=== PATIENT | female | born 1950 | race Two or more races ===

== ENCOUNTER 2016-10-02 11:13 | Observation (INO) | payer OTHER ==
--- NOTE | ~2016-10-02 | CR72 ---
[facility] A Service of [facility] & [facility] RADIOLOGY TEXT RESULTS PATIENT: PRINCESS PETTIT LOCATION: [facility] : 54 UNIT #: [id number] AGE: [address]: Kelly Orantes MD SEX: F ORDER DR: [id number] [facility] [address] [place], [place] [address] [id number] E MR#: [id number] Acc #: [id number] NAME: PRINCESS PETTIT : 1950 SEX: F STUDY DATE/TIME: 10/02/2016 10:16 UNIT: [facility] ROOM: STUDY DESCRIPTION: CR Chest Single View Portable Attending Physician: Kelly Orantes M.D. Ordering Physician: Kelly Orantes M.D. Primary Care Physician: Earl Whitaker M.D. MEDICAL IMAGING REPORT This report is preliminary unless electronic signature is present EXAM Portable chest HISTORY Chest pain, hypertension, nausea for the past 2 days. TECHNIQUE A single AP view chest was obtained and compared with 06/29/2012 FINDINGS A single AP portable view of the chest shows both lungs to be clear. The heart is normal in size. The mediastinal contour is normal. No significant bone abnormalities are seen. IMPRESSION Normal portable chest. Dictated by... Shreyas Mello M.D. THIS IS AN ELECTRONICALLY VERIFIED REPORT Shreyas Mello M.D. at 10/02/2016 3:27 PM LURDES/rick TD: 10/02/2016 13:28 JOB #: [id number] MEDICAL IMAGING REPORT COPY
--- NOTE | ~2016-10-02 | TH ---
Unit #: [id number] #: [id number] Patient: PRINCESS PETTIT [id number] [address] [address] [id number] I MR#: [id number] NAME: PRINCESS PETTIT : 1950 SEX: F STUDY DATE/TIME: 10/05/2016 UNIT: C5B ROOM: 558 STUDY DESCRIPTION: Attending Physician: Derian Moore M.D. Primary Care Physician: Earl Whitaker M.D. CARDIOLOGY REPORT EXAM Lexiscan Cardiolite stress test, nuclear portion. PROCEDURE Using technetium 99m labeled Cardiolite, rest and stress SPECT images were obtained. Multiple SPECT images were obtained in various views including horizontal and vertical long axis and short axis views of the left ventricle. Images were obtained by gated SPECT method. The patient was administered 10.26 mCi of Cardiolite at rest. The patient was administered 35.1 mCi of Cardiolite after Lexiscan infusion was completed. On the stress images, there is mild decreased isotope activity in the anteroapical wall. The rest images show normal perfusion. Comparing rest and stress images, a small area of stress-induced ischemia involving the anteroapical wall of the left ventricle cannot be ruled out. The left ventricular ejection fraction is calculated to be 78%. The left ventricular size is small. There is no focal wall motion abnormality seen. CONCLUSION 1. A small area of stress-induced ischemia involving the anteroapical wall of the left ventricle cannot be ruled out. 2. The left ventricular ejection fraction is calculated to be 78%. 3. There is no focal wall motion abnormality seen. 4. The left ventricular size is small. 5. Technically extremely limited study due to patient's body habitus. Clinical correlation is requested. Dictated by... Nithya Chakraborty TD: 10/05/2016 12:44 JOB #: [id number] Unit #: [id number] #: [id number] Patient: PRINCESS PETTIT CARDIOLOGY REPORT X Roxann Brandt MD <ELECTRONICALLY SIGNED> 02/20/17 1429 CARDIOLOGY REPORT
--- NOTE | ~2016-10-02 | EKG ---
PATIENT: PRINCESS PETTIT UNIT #: [id number] Ventricular Rate: 95 BPM Atrial Rate: 95 BPM P-R Interval: 202 ms QRS Duration: 78 ms Q-T Interval: 354 ms QTC Calculation(Bezet): 444 ms P [place]: 29 degrees Calculated R [place]: 5 degrees Calculated T [place]: 22 degrees Diagnosis Line: Normal sinus rhythm Diagnosis Line: Normal ECG Diagnosis Line: When compared with ECG of 01-OCT-2014 23:44, Diagnosis Line: No significant change was found Diagnosis Line: Confirmed by FABI WATTERS MD ([id number]) on 10/02/2016 Diagnosis Line: 4:47:02 PM INTERPRETING MD: DUONG WESLEY
--- NOTE | ~2016-10-02 | EKG ---
PATIENT: PRINCESS PETTIT UNIT #: [id number] Ventricular Rate: 83 BPM Atrial Rate: 83 BPM P-R Interval: 212 ms QRS Duration: 88 ms Q-T Interval: 386 ms QTC Calculation(Bezet): 453 ms P [place]: 33 degrees Calculated R [place]: 0 degrees Calculated T [place]: 2 degrees Diagnosis Line: Sinus rhythm with 1st degree A-V block Diagnosis Line: Otherwise normal ECG Diagnosis Line: When compared with ECG of 02-OCT-2016 09:49, Diagnosis Line: No significant change was found Diagnosis Line: Confirmed by MORIAH BARGER MD ([id number]) on Diagnosis Line: 10/06/2016 3:59:55 PM INTERPRETING MD: DENITA WESLEY
--- NOTE | ~2016-10-02 | CT16 ---
[facility] A Service of [facility] RADIOLOGY TEXT RESULTS PATIENT: PRINCESS PETTIT LOCATION: [facility] 558-01 : 54 UNIT #: [id number] AGE: [address]: Derian Moore MD SEX: F ORDER DR: [id number] [facility] [address] [facility] [place] [facility] [place], [place] [address] [id number] I MR#: [id number] Acc #: [id number] NAME: PRINCESS PETTIT : 1950 SEX: F STUDY DATE/TIME: 10/02/2016 14:30 UNIT: CEDOF ROOM: 27933 STUDY DESCRIPTION: CT Angio Chest for PE Attending Physician: Derian Moore M.D. Ordering Physician: Kelly Orantes M.D. Primary Care Physician: Earl Whitaker M.D. MEDICAL IMAGING REPORT This report is preliminary unless electronic signature is present EXAM CT angiogram chest, PE protocol. DATE OF EXAM 10/02/2016 HISTORY Elevated D-dimer, elevated white blood cell count, chest pain onset of symptoms this morning. TECHNIQUE Axial images performed through the chest following IV contrast. 3-D coronal and sagittal reconstructed images reviewed at a workstation. NOTE: This CT exam was performed with one or more of the following radiation dose reduction techniques: automatic exposure control, adjustment of mA and/or kV according to patient size, and iterative reconstruction. FINDINGS Pulmonary parenchyma unremarkable except for a small amount of lingular atelectasis. No effusions. Trachea and bronchi unremarkable. Normal enhancement of the pulmonary arteries. No definitive emboli. The aorta is free of dissection or aneurysm. Heart size within normal limits. No significant mediastinal or hilar lymphadenopathy. Visualized upper abdomen unremarkable. Mild diffuse degenerative changes of the thoracic spine. The thoracic inlet, extrathoracic soft tissues unremarkable. IMPRESSION No acute intrathoracic abnormality identified. In particular, no evidence of pulmonary embolus. [facility] A Service of [facility] RADIOLOGY TEXT RESULTS PATIENT: PRINCESS PETTIT LOCATION: [facility] 558 : 54 UNIT #: [id number] AGE: [address]: Derian Moore MD SEX: F ORDER DR: Dictated by... Christine Cabrera M.D. THIS IS AN ELECTRONICALLY VERIFIED REPORT Christine Cabrera M.D. at 10/05/2016 7:40 AM Peggy TD: 10/02/2016 20:48 JOB #: [id number] MEDICAL IMAGING REPORT COPY
--- NOTE | ~2016-10-02 | ST ---
Unit #: [id number] #: [id number] Patient: PRINCESS PETTIT [id number] [address] [address] [id number] I MR#: [id number] NAME: PRINCESS PETTIT : 1950 SEX: F STUDY DATE/TIME: 10/03/2016 UNIT: C5B ROOM: 558 STUDY DESCRIPTION: Attending Physician: Derian Moore M.D. Primary Care Physician: Earl Whitaker M.D. CARDIOLOGY REPORT EXAM EKG portion of Lexiscan Cardiolite stress test. REASON FOR EXAM Chest pain. DISCUSSION Baseline EKG reveals sinus rhythm with a ventricular rate of 88 beats per minute. Mild T wave inversion noted in the inferior leads. Poor R wave progression in the anterior leads. A total of 0.4 mg of Lexiscan was injected per protocol, followed by Cardiolite. There were no complaints of chest pain. There were no sustained arrhythmias noted. There were no ST or T wave changes from baseline to suggest ischemia. The maximum heart rate was 111 beats per minute with a maximum blood pressure of 144/84 mmHg. The test was stopped due to protocol completion. IMPRESSION 1. Negative EKG portion of Lexiscan Cardiolite stress test. 2. There were no complaints of chest pain. 3. There were no sustained arrhythmias noted. 4. There were no ST or T wave changes to suggest ischemia from baseline. 5. Please correlate with Cardiolite images. 1. Dictated by... Danielle García APRN for Nithya Dominguez/michaela TD: 10/04/2016 20:26 JOB #: [id number] CARDIOLOGY REPORT X CARDIOLOGY REPORT
--- NOTE | ~2016-10-02 | HP ---
Unit #: [id number] #: [id number] Patient: PRINCESS PETTIT [id number] [address] [place], [place] [address] [id number] E MR#: [id number] NAME: PRINCESS PETTIT ROOM: Age: 66 Sex: F Admission Date: 10/02/2016 : 1950 Attending Physician: Kelly Orantes M.D. Primary Care Physician: Earl Whitaker M.D. HISTORY AND PHYSICAL HISTORY OF PRESENT ILLNESS This is a pleasant 66-year-old [place] female who is non-Romanian speaking. All information was obtained from the licensed pesticide applicator phone. The patient has a past medical history of hypertension, hyperlipidemia, diabetes mellitus type 2, anxiety, depression. She states she was at home today and noticed her blood pressure was elevated. She also complained of substernal chest pain. She describes it as sharp in nature with no radiation into the jaw, arm, or into the shoulder. She had no associated diaphoresis, shortness of air, nausea or vomiting. The patient did take her blood pressure medications at home but came into the emergency room for evaluation. On presentation, her initial EKG shows sinus rhythm at 95 beats per minute; no acute ischemic change; QTC interval 444 msec. POC troponins have been negative x2. The patient does have risk factors for coronary artery disease which include obesity, hypertension, hyperlipidemia, and diabetes mellitus. At present, she reports she is chest pain-free and she is mostly concerned with eating. She states she has never had this before and it was concerning to her. She currently is lying in bed. She is comfortable in no acute distress. PAST MEDICAL HISTORY 1. Hypertension. 2. Hyperlipidemia. 3. Diabetes mellitus. 4. Anxiety. 5. Depression. 6. Obesity. PAST SURGICAL HISTORY Cholecystectomy. HOME MEDICATIONS 1. Pravachol 20 mg p.o. daily. 2. Abilify 5 mg p.o. b.i.d. 3. Metoprolol tartrate 25 mg p.o. b.i.d. 4. Januvia 100 mg p.o. daily. 5. Fluoxetine 40 mg p.o. daily. 6. Timoptic 5 mL both eyes daily. 7. Lisinopril/hydrochlorothiazide 20/12.5 one tab p.o. b.i.d. 8. Clonidine 0.1 mg p.o. q.6 h. p.r.n. for systolic blood pressure greater than 160. Unit #: [id number] #: [id number] Patient: PRINCESS PETTIT 9. Pioglitazone 30 mg p.o. daily. 10. Metformin 500 mg p.o. b.i.d. SOCIAL HISTORY The patient states she lives alone. She has been in the [place] for approximately 14 years. Again, she does not speak Romanian. Her son and daughters are close by and they help her. The patient reports she does not do much activity on a regular basis. She is a lifelong nonsmoker. Denies illicit drug use or alcohol. FAMILY HISTORY Positive for hypertension and stroke in her mother. REVIEW OF SYSTEMS A 12-point review of systems was completed and is positive for what was stated in the HPI, chest pain and some back pain. Otherwise negative. PHYSICAL EXAMINATION VITAL SIGNS: Temperature 98.2, respiratory rate 18, pulse 98 to 114, blood pressure 121/85. Her BMI is 38. GENERAL: This is a pleasant, non-Romanian speaking 66[facility]. Information was gathered via licensed pesticide applicator phone. She is resting in the bed in the emergency room in room T7. She is in no acute distress. HEENT: Pupils are equal and round. Mucous membranes are dry. LUNGS: Clear to auscultation. No adventitious breath sounds. No rales, no rhonchi, no wheezes. Slightly diminished in the bases. HEART: S1, S2. Regular rate and rhythm. No murmur. ABDOMEN: Soft, nontender, nondistended, obese pannus. Bowel sounds are present. EXTREMITIES: Pulses are palpable. No clubbing, cyanosis, or edema. DIAGNOSTIC STUDIES LABORATORY: POC troponins have been negative x2. Sodium 136, potassium 4.8, chloride 100, CO2 is 28, BUN 16, creatinine 1.0, blood glucose is 240. Hemoglobin 13.7, hematocrit 40.6, WBC 10.9, platelet count 313. BNP is 21. IMAGING: Chest x-ray shows no active disease. CARDIOVASCULAR: EKG shows normal sinus rhythm rate of 95 beats per minute. QTC interval 444 msec. No acute ischemic changes noted. IMPRESSION 1. Atypical chest pain, rule out acute coronary syndrome. 2. Hypertension. 3. Hyperlipidemia. 4. Diabetes mellitus. 5. Obesity with a BMI of 38. PLAN 1. Patient will be admitted for overnight observation. 2. She will be started on a diet today. 3. Currently chest pain-free. 4. EKG shows no acute abnormality, however, will trend cardiac enzymes. If abnormal, those are to be called. 5. The patient will be scheduled for Lexiscan Cardiolite in the a.m. 6. N.P.O. after midnight and no caffeine. 7. Will get fasting lipid panel, hemoglobin A1c, CBC, BMP, magnesium and Unit #: [id number] #: [id number] Patient: PRINCESS PETTIT TSH level in the morning. 8. Start her on 81 mg of daily aspirin. 9. At present, her blood pressure is controlled. Will resume her home medications as directed. 10. Further recommendations to follow pending Dr. Moore's assessment. Dictated by Holly Hewitt A.P.R.N. for Nithya Dominguez/cs TD: 10/02/2016 17:13 JOB #: [id number] HISTORY AND PHYSICAL X Holly Hewitt APRN X HISTORY AND PHYSICAL
[2016-10-02 11:06] LABS: BASOPHIL# 0.1 X10e3 (0-0.3); BASOPHIL% 0.5 % (0-2.5); EOSINOPHIL# 0.2 X10e3 (0-0.7); EOSINOPHIL% 1.6 % (0.0-7.0); HEMATOCRIT 40.6 % (35.0-45.0); HEMOGLOBIN 13.7 gm/dL (12.0-16.0); LYMPHOCYTE# 2.5 X10e3 (1.0-3.5); LYMPHOCYTE% 23.2 % (17.0-45.0); MEAN CELL VOLUME 87.1 FL (83-96); MEAN CORPUSCULAR HEMOGLOBIN 29.3 PG (28-34); MEAN CORPUSCULAR HGB CONC 33.7 g/dL (30-36); MEAN PLATELET VOLUME 8.9 FL (6.5-11.5); MONOCYTE# 0.7 X10e3 (0-1.0); NEUTROPHIL# 7.5 X10e3 (1.5-7.1); NEUTROPHIL% 68.7 % (40-75); PLATELET COUNT 313 X10e3 (140-420); RED BLOOD COUNT 4.66 X10e (3.90-5.30); RED CELL DISTRIBUTION WIDTH 14.7 % (11.0-15.5); WHITE BLOOD COUNT 10.9 X10e3 (4.0-10.5)
[2016-10-02 11:07] LABS: POC - CKMB <1.0 ng/mL (0.0-7.9); POC - TROPONIN <0.05 ng/mL (<=0.05)
[2016-10-02 11:09] LABS: DIFF IND NO
[~2016-10-02 11:13] MED LIST: ABILIFY10 MG PO; CATAPRES-TTS-20.2 M1 PO; JANUVIA100 MG PO; LISINOPRIL-HCTZ1 T14 PO; LOPRESSOR PO; METFORMIN HCL500 M2 PO; METOPROLOL TAR25 MG PO; PIOGLITAZONE30 MG PO; PRAVACHOL20 MG PO; SARAFEM20 MG PO; ZOFRAN ODT4 MG/UDTAB PO
[2016-10-02 11:40] LABS: ALBUMIN SERUM 4.1 g/dL (3.5-5.0); BILIRUBIN, DIRECT 0.1 mg/dL (0.0-0.2); BILIRUBIN,INDIRECT 0.6 mg/dL (0.0-0.9); BILIRUBIN,TOTAL 0.7 mg/dL (0.2-2.0); CALCIUM SERUM 9.2 mg/dL (8.4-10.2); GLOM FILT RATE Estimated 59.3 mL/min (>60); POTASSIUM 4.8 mmol/L (3.5-5.1); PROTEIN TOTAL SERUM 7.3 g/dL (6.0-8.3)
[2016-10-02 12:47] LABS: POC - CKMB <1.0 ng/mL (0.0-7.9); POC - TROPONIN <0.05 ng/mL (<=0.05)
[2016-10-02] MEDS ORDERED: PRAVACHOL20 MG PO (13:09)
[2016-10-02] MEDS ORDERED: ABILIFY5 MG PO (13:10)
[2016-10-02] MEDS ORDERED: METOPROLOL TAR25 MG PO (13:11)
[2016-10-02] MEDS ORDERED: JANUVIA100 MG PO (13:12)
[2016-10-02] MEDS ORDERED: SELFEMRA20 MG PO (13:13)
[2016-10-02] MEDS ORDERED: LISINOPRIL-HCTZ1 T14 PO (13:14)
[2016-10-02] MEDS ORDERED: TIMOPTIC5 ML OU (13:14)
[2016-10-02] MEDS ORDERED: METFORMIN HCL500 M3 PO (13:15)
[2016-10-02] MEDS ORDERED: PIOGLITAZONE30 MG PO (13:15)
[2016-10-02] MEDS ORDERED: CATAPRES0.1 MG PO (13:15)
[2016-10-02 19:30] LABS: %MB 0.9 % (0.0-4.0); MB 0.7 ng/ml
[2016-10-03 01:54] LABS: CK TOTAL 56 IU/L (26-140)
[2016-10-03 05:40] LABS: BASOPHIL# 0.1 X10e3 (0-0.3); EOSINOPHIL# 0.2 X10e3 (0-0.7); EOSINOPHIL% 1.8 % (0.0-7.0); HEMATOCRIT 37.9 % (35.0-45.0); HEMOGLOBIN 12.4 gm/dL (12.0-16.0); LYMPHOCYTE# 3.8 X10e3 (1.0-3.5); LYMPHOCYTE% 35.3 % (17.0-45.0); MEAN CELL VOLUME 88.2 FL (83-96); MEAN CORPUSCULAR HEMOGLOBIN 28.9 PG (28-34); MEAN CORPUSCULAR HGB CONC 32.8 g/dL (30-36); MEAN PLATELET VOLUME 8.4 FL (6.5-11.5); MONOCYTE# 0.8 X10e3 (0-1.0); MONOCYTE% 7.1 % (3.0-12.0); NEUTROPHIL# 5.9 X10e3 (1.5-7.1); NEUTROPHIL% 54.8 % (40-75); PLATELET COUNT 271 X10e3 (140-420); RED BLOOD COUNT 4.29 X10e (3.90-5.30); RED CELL DISTRIBUTION WIDTH 14.8 % (11.0-15.5); WHITE BLOOD COUNT 10.8 X10e3 (4.0-10.5)
[2016-10-03 05:44] LABS: DIFF IND NO
[2016-10-03 08:29] LABS: BUN/CREATININE RATIO 27.27; CREATININE SERUM 1.1 mg/dL (0.6-1.4); GLOM FILT RATE Estimated 53.1 mL/min (>60); MAGNESIUM 1.7 mg/dL (1.6-3.0)
[2016-10-03 09:01] LABS: CHOLESTEROL 117 mg/dL (0-200); HDL CHOLESTEROL 43 mg/dL (35-95); LDL CHOLESTEROL 20 mg/dL (-130); LDL/HDL RATIO 0 RATIO (0-4); TRIGLYCERIDES 272 mg/dL (10-160)
[2016-10-03] MEDS ORDERED: ASPIRIN81 MG PO (16:54)
== END 2016-10-03 18:36 | disposition home or self-care (01) ==
LOC: CED 11:13 → CEDOF 16:00 → C5B 10-03 15:35
PROVIDERS: Internal Medicine Cardiovascular Disease; Nurse Practitioner; Student in an Organized Health Care Education/Training Program
DX: R07.89 Other chest pain (principal); I10 Essential (primary) hypertension; E78.5 Hyperlipidemia, unspecified; E11.9 Type 2 diabetes mellitus without complications; Z79.84 Long term (current) use of oral hypoglycemic drugs; E66.9 Obesity, unspecified; Z68.38 Body mass index [BMI] 38.0-38.9, adult; Z79.899 Other long term (current) drug therapy; Z90.49 Acquired absence of other specified parts of digestive tract; Z82.49 Family history of ischemic heart disease and other diseases of the circulatory system; Z82.3 Family history of stroke
CPT/HCPCS: 36415; 71010; 71275; 78452; 80048; 80061; 80076; 82550; 82553; 82947; 83036; 83735; 83880; 84443; 84484; 85025; 85379; 93005; 93017; 96372; 96374; 96375; 99285; A9500; C9113; G0378; J1644; J1650; J2405; J2785; Q9967